=== PATIENT | female | born 1975 | race Caucasian/White ===

== ENCOUNTER 2016-10-08 11:59 | Day surgery (SDC) | payer OTHER ==
[2016-10-08] VITALS (9 sets, daily range): BP systolic 117–128; BP diastolic 57–94; PULSE 60–86; RESP 12–18; O2SAT 97–100
[~2016-10-08] VITALS: Ht 165.1 cm; Wt 76.3 kg
[~2016-10-08 11:59] MED LIST: CALC-714 PO; CYAN500 PO; CeFAZolin Inj 2 GM in IV Premix 1 EACH IV ONE; DICL100G8 TOPICAL; HYDR-4003 PO; L.AC1CAP6 PO; Lactated Ringer's 1,000 ML IV SCH; MULT-1080 PO; ZOLP12.52 PO
[2016-10-08] MEDS ORDERED: Ropivacaine-PF 0.5% 30 mL Inj ONE (12:00)
[2016-10-08] MEDS ORDERED: EPHEDrine/NS 5 mg/mL 5 mL Syringe ONE (12:00)
[2016-10-08] MEDS ORDERED: Dexamethasone 4 mg/mL Inj ONE (12:00)
[2016-10-08] MEDS ORDERED: Neostigmine 1 mg/mL 10 mL Inj ONE (12:00)
[2016-10-08] MEDS ORDERED: Rocuronium 10 mg/mL 5 mL Inj ONE (12:00)
[2016-10-08] MEDS ORDERED: Ondansetron 2 mg/mL 2 mL Inj ONE (12:00)
[2016-10-08] MEDS ORDERED: fentaNYL-PF 50 mCg/mL 2 mL Inj ONE (12:00)
[2016-10-08] MEDS ORDERED: Propofol 10,000 mCg/mL 20 mL Inj ONE (12:00)
[2016-10-08] MEDS ORDERED: MetoCLOpramide 5 mg/mL 2 mL Inj ONE (12:00)
[2016-10-08] MEDS ORDERED: Lactated Ringer's 1,000 ML IV ONE (12:51)
[2016-10-08] MEDS ORDERED: CeFAZolin Inj 2 gm / 50mL D5W IV ONE (13:10)
[2016-10-08] MEDS ORDERED: Lidocaine 1%-Epi 1:100,000 20 mL Inj INJ ONE (15:26)
[2016-10-08] MEDS ORDERED: Atropine 0.4 mg/mL Inj IVPUSH PRN (15:35)
[2016-10-08] MEDS ORDERED: hydrALAZINE 20 mg/mL Inj IVPUSH PRN (15:35)
[2016-10-08] MEDS ORDERED: Phenylephrine 10,000 mCg/mL Inj IVPUSH PRN (15:35)
[2016-10-08] MEDS ORDERED: Ondansetron 2 mg/mL 2 mL Inj IVPUSH PRN (15:35)
[2016-10-08] MEDS ORDERED: EPHEDrine Sulfate 50 mg/mL Inj IVPUSH PRN (15:35)
[2016-10-08] MEDS ORDERED: Lactated Ringer's 500 ML IV PRN (15:35)
[2016-10-08] MEDS ORDERED: MetoCLOpramide 5 mg/mL 2 mL Inj IVPUSH PRN (15:35)
[2016-10-08] MEDS ORDERED: fentaNYL-PF 50 mCg/mL 2 mL Inj IVPUSH PRN (15:35)
[2016-10-08] MEDS ORDERED: Labetalol 5 mg/mL 4 mL Inj IV PRN (15:35)
[2016-10-08] MEDS ORDERED: Lactated Ringer's 1,000 ML IV SCH (15:35)
[2016-10-08] MEDS ORDERED: HYDROmorphone 1 mg/mL Inj IVPUSH PRN (15:35)
--- NOTE | 2016-10-08 15:36 | PCM.HPANE ---
Patient Data Surgeon Admitting Provider: Attending Provider:Sean Michele DO Primary Care Physician:Sixto Carreno PA-C Other Provider:Lawrence Mendoza Anesthesia Reason for Visit Right Partial Rotator Cuff Tear, Impingement Ht/WT & BMI Height (Feet): 5 Height (Inches): 5 Weight (Kilograms): 76.3 Body Mass Index 28.00 Allergies Coded Allergies: No Known Allergies (Unverified , 10/06/16) Past Anesthesia History Anesthesia History: Positive for:: Anesthesia Reactions, Denies:: Abnormal Airway, Difficult Intubation, Fam Anesthesia Reaction Diabetes History Hx Diabetes?: No MRSA MRSA: No Medications Home Meds Incl Beta Donna: No Reported Medications Hydrocodone-Acetaminophen 5-325 mg 1 Each Tablet1 Tablet PO Q8H PRN For Pain Ref 0 10/06/16 Multivits,Ca,Minerals/Iron/FA (Women's Daily Formula Caplet)500-18-0.4 Tablet1 Each PO DAILY 10/06/16 Diclofenac Gel (Voltaren Gel)100 Gm Tube1 Applic TOPICAL QID #1 TUBE 10/06/16 Cyanocobalamin (Vitamin B12)500 Mcg Tablet1,000 Mcg PO DAILY 10/06/16 L.acidoph & Paracasei,B.lactis (Probiotic)10 Billion Cell Capsule2 Each PO DAILY 10/06/16 Calcium Carb/Magnesium Cmb #10 (Randy-Mag Tablet Chewable)1 Each Tab.chew1 Each PO DAILY 10/06/16 Zolpidem ER (Ambien CR)12.5 Mg Cqxqpc89.5 Mg PO HS PRN For Insomnia Ref 0 10/06/16 History HEENT History: Denies:: Abnormal Airway Cataracts Difficult Intubation Dysphagia Glaucoma Hearing Problem Sinus Problem TMJ Cardiovascular History: Denies:: AICD Abdominal Aortic Aneurism Atrial Fibrillation Cardiac Surgery Chest Pain Congestive Heart Failure Coronary Artery Disease Edema Heart Murmur Hypertension Irregular Heartbeat Pacemaker Peripheral Vascular Rheumatic Fever Thrombophlebitis Respiratory History: Denies:: Asthma COPD Emphysema Oxygen Administration Pneumonia Tuberculosis Use of C-PAP Machine Use of Inhalers / NEBS Hx Neurologic Problems?: No Neurological History: Denies:: CVA Dementia Dizziness Headaches Multiple Sclerosis Parkinson's Disease Seizures Hx of GI Problems?: Yes Gastrointestinal History: Positive for:: Liver Disease (hemangioma liver) Denies:: Cirrhosis Gall Bladder Disease Gastroesphageal Reflux Heartburn Hepatitis Hiatal Hernia Hx of Problems?: No Genitourinary History: Denies:: Kidney Stones Urinary Tract Infection Female Hx: Denies:: Currently Problems with Breasts? Skin History: Denies:: History Skin Disorders? Pressure Ulcers Hx Musculoskeletal Problems?: Yes Musculoskeletal History: Positive for:: Fibromyalgia Musculoskeletal Trauma (right shoulder current admission problem) Osteoarthritis Denies:: Myasthenia Gravis Systemic Lupus Hx of Psycho/Social Problems?: Yes Psycho Social History: Positive for:: Anxiety Hx Depression Hx Surgeries?: Yes (breast augmentation) Hx Any Other Health Problems?: Yes Other History: Denies:: Cancer Thyroid Disease History Blood Transfusions: Positive for:: Accept Blood Products? Denies:: Blood Transfusions Hx Diabetes: No Hx Alcohol Use: NoHx Substance Use: NoHave You Smoked inLast 12 mo: No Stop/Bang S-Snoring: Do You Snore Loudly: No T-Tired: feel tired, fatigued: No O-Obsered: Observed not breath: No P-Blood Pressure: treated: No B- Body Mass Index > 35 kg/m2: No A- Age over 50: No N- Neck Large Circumference: No G- Gender Male: No LOBO Total Score: 0 Risk Assessment Category Category 1A: Patient has history of documented sleep apnea, and HAS NOT received any narcotic, sedative or anesthesia administration during this stay. Category 1B: Patient has history of documented sleep apnea, and HAS received any narcotic , sedative or anesthesia administration during this stay Category 2: Patient has SUSPECTED Obstructive Sleep Apnea, and HAS received any narcotic , sedative or anesthesia administration during this stay. Category 3: Patient has SUSPECTED Obstructive Sleep Apnea and HAS NOT received narcotic, sedative or anesthesia administration during this stay. Category 4: Outpatient in Procedural Areas with known sleep apnea or who screen positive for High Risk via the STOP/BANG questionnaire. Exam Exam Vital Signs Vital Signs Date Time Temp Pulse Resp B/P Pulse Ox O2 Delivery O2 Flow Rate FiO2 10/08/16 12:25 36.5 60 18 128/94 100 Room Air General Appearance: Alert, Oriented X3, Cooperative, No Acute Distress HEENT/AIRWAY: MP 2, Neck Movement (FROM), Mouth Opening (3 FBMO) Lungs: Clear to Auscultation, Normal Air Movement Heart: Exam Unremarkable, Regular Rate/Rhythm, No Murmurs/Rubs/Gallops Plan Impression Patient chart reviewed, patient interviewed and anesthestic plan with risks, benefits, and alternatives discussed, and informed consent obtained. NPO Status: > 8 hrs ASA Physical Status: ASA2 Mod Systemic Disease Anesthetic Plan: GA Bene/Risks/Altern/Consents: Yes HP Complete Prior to Induction: Yes Fransisco Choi MD Oct 08, 2016 12:44
--- NOTE | 2016-10-08 16:26 | PCM.ANEP2 ---
Post Anesthesia Evaluation ASA/CMS Post Anesthesia VS in Patient's Normal Range?: Yes Resp Stable; Airway Patent?: Yes CV Function & Hydration Stable: Yes Mental Status Recovered?: Yes Pain control Satisfactory?: Yes N/V Control Satisfactory?: Yes Fransisco Choi MD Oct 08, 2016 16:26
--- NOTE | 2016-10-08 16:26 | PCM.ANEP1 ---
Post Anesthesia Phase 1 PACU Phase 1 Assessment Vital Signs Vital Signs Date Time Temp Pulse Resp B/P Pulse Ox O2 Delivery O2 Flow Rate FiO2 10/08/16 12:25 36.5 60 18 128/94 100 Room Air Anesthetic Administered: GA Level of Alertness: Awake, talking SUERO's with Equal Strength: Yes Pain: No Nausea or Vomiting: No Oxygen Delivery: Simple Mask Lungs: Clear to Auscultation, Normal Air Movement Dermatome Level: Full Sensation Fransisco Choi MD Oct 08, 2016 16:25
[2016-10-08] MEDS ORDERED: oxyCODONE-Acetamin 5-325 mg Tablet PO PRN (16:30)
--- NOTE | 2016-10-09 16:04 | OP ---
[address] [address] OPERATIVE REPORT PATIENT: LORETO CHAMPAGNE : 1975 MR#: [id number] ADMIT: 10/08/2016 JOB ID: [id number] DATE OF SURGERY: 10/08/2016 PREOPERATIVE DIAGNOSIS(ES): 1. Right shoulder rotator cuff tendinopathy with partial-thickness bursal surface tear. 2. Right shoulder impingement syndrome. 3. Right shoulder acromioclavicular arthritis. POSTOPERATIVE DIAGNOSIS(ES): 1. Right shoulder rotator cuff tendinopathy. 2. Right shoulder degenerative labral fraying. 3. Right shoulder impingement syndrome. 4. Right shoulder acromioclavicular arthritis. SURGERIES AND PROCEDURES: 1. Right shoulder arthroscopy with rotator cuff and labral debridement. 2. Right shoulder arthroscopy with subacromial decompression. 3. Right shoulder arthroscopy with distal clavicle excision. SURGEON: Sean Michele DO. BEADING INSTALLER: Patricia Matamoros PA-C. The assistance of Patricia Matamoros PA-C was necessary for assistance and manipulation of the intra-articular equipment, including the camera and for primary closure at the conclusion of the case. BRIEF HISTORY: The patient is a 41-year-old female that presented with a longstanding history of bilateral shoulder pain. She was treated conservatively with injections and therapy, as well as anti-inflammatories. She was progressing well with her left shoulder but continued to have problems in regards to her right shoulder. MRI demonstrated only a partial-thickness bursal surface tear to the rotator cuff. She had also demonstrated signs of impingement syndrome and moderate acromioclavicular arthritis. Discussed with the patient the risks, benefits, alternatives and indications to proceed with a right shoulder arthroscopy with rotator cuff debridement versus repair, subacromial decompression, distal clavicle excision. She understood the risks included, but not limited to, neurovascular injury, tendon injury, infection, failure to resolve patient of preoperative symptoms, stiffness, persistent pain, all of which may require further intervention. The patient had all her questions answered. Consent was signed and placed in chart. PROCEDURE IN DETAIL: The patient was brought to the operating suite and placed supine on the operating room table. Surgical time-out was performed. Everyone in the room was in agreement. After appropriate anesthesia was obtained, the patient was placed into the beach chair position with all prominences well padded. The right upper extremity was then prepped and draped in a sterile fashion. The right upper arm was then placed into an arthroscopic arm nolasco. A standard posterior viewing portal was then developed in typical fashion. The camera was introduced into the glenohumeral joint. Under gross observation, there was no evidence of chondromalacia to the humeral head or to the glenoid. There was some degenerative circumferential fraying to the labrum including to the anterior and posterior superior quadrants. An anterior working portal was then developed in typical fashion. A shaver introduced to perform a limited debridement of the labrum. The undersurface of the rotator cuff was found to be fully intact. The biceps also was found to be intact as well with the bicipital anchor. The biceps was further brought into the intra-articular space, and no tendinopathy was appreciated. The arthroscopic equipment was then brought into the subacromial space. On gross observation, there was moderate hypertrophic bursa. A lateral working portal was then created. A bursectomy was then performed revealing the bursal surface of the rotator cuff. The bursal surface of the rotator cuff was then fully delineated, and no tears were appreciated. A limited debridement of the bursal surface was performed to some areas of fraying to the anterior aspect of the supraspinatus insertion but again, no full-thickness tears were appreciated. The undersurface of the acromion was further delineated with surface electrode cautery. There was a slight under-hanging of the very anterior aspect of the acromion. A bur next was used to perform an acromioplasty. Next, the bur was brought through an anterior portal to perform a distal clavicle excision of approximately 8-10 mm in width. The arthroscopic equipment was then removed from the joint. The portals closed with 4-0 nylon in a simple interrupted fashion. Patient then placed in a bulky sterile dressing. ESTIMATED BLOOD LOSS: Less than 25 cc. COMPLICATIONS: None. DISPOSITION: The patient tolerated the procedure well. Anesthesia was reversed. The patient was transferred to the PACU for recovery. POSTOPERATIVE PLAN: The patient will follow up in my office in two weeks. I will remove the patient's sutures at that time and have her start working on range of motion and gradual rotator cuff strengthening exercises with therapy.
== END 2016-10-08 23:59 | disposition home or self-care (01) ==
LOC: SAS 11:59
PROVIDERS: ATTEND Orthopaedic Surgery
DX: M75.111 Incomplete rotator cuff tear or rupture of right shoulder, not specified as traumatic (principal); M75.41 Impingement syndrome of right shoulder; M19.011 Primary osteoarthritis, right shoulder; M67.912 Unspecified disorder of synovium and tendon, left shoulder; M79.7 Fibromyalgia; F41.9 Anxiety disorder, unspecified; F32.9 Major depressive disorder, single episode, unspecified
CPT/HCPCS: 29823; 29824; 29826; 76942; J0690; J1100; J2250; J2405; J2710; J2765; J2795; J3010; J7120